=== PATIENT | female | born 1940 | race Caucasian/White ===

== ENCOUNTER 2016-09-28 02:27 | Emergency (ER) | payer OTHER ==
[~2016-09-28] VITALS: Ht 156.2 cm; Wt 77.8 kg
[~2016-09-28 02:27] MED LIST: AMIO200 PO; APIX5TAB PO; CO Q100C9 PO; MAG-500T PO; MELA5TAB8 PO; MISC1CAP PO; NITR0.4S SL; PRED20 PO; TAB-TAB; VITD400 PO; [UNRECOGNIZED DRUG - CODE] PO
[2016-09-28 02:35] VITALS: BP 148/86; PULSE 80; RESP 16; TEMP 97.5; O2SAT 96
[2016-09-28] MEDS ORDERED: APIX5TAB PO (04:09)
[2016-09-28] MEDS ORDERED: VITATAB56 PO (04:09)
[2016-09-28] MEDS ORDERED: COEN100T PO (04:09)
[2016-09-28] MEDS ORDERED: MULT1TAB84 PO (04:09)
[2016-09-28] MEDS ORDERED: AMIO200T PO (04:09)
[2016-09-28] MEDS ORDERED: MAGN500T5 PO (04:09)
[2016-09-28] MEDS ORDERED: TYLETAB34 PO (04:21)
[2016-09-28] MEDS ORDERED: PRED20 PO (04:21)
--- NOTE | 2016-09-28 04:25 | PD ---
HPI Chief Complaint: Pain: Acute or Chronic Time Seen by Provider: 04:19 Travel History International Travel<30 days: No Contact w/Intl Traveler<30days: No Traveled to known affect area: No History of Present Illness HPI 76 old female presents to the emergency department for one day of recurrent gouty arthritis affecting her left great toe which is typically where she has exacerbation. Patient is not a candidate for nonsteroidal anti-inflammatory medications due to history of atrial fibrillation and use of Eliquis. Patient denies any trauma injury. 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 Patient has localized swelling at the site. Some localized redness and swelling no sending erythema denies any claudication or pallor of the left foot or left lower extremity. PFSH Past Medical History Narrative Medical Gouty arthritis atrial fibrillation nursing notes reviewed Hx Anticoagulant Therapy: Yes Atrial Fibrillation: Yes Anxiety: No Depression: No Heart Rhythm Problems: Yes (afib) Cancer: No Cardiac Catheterization: Yes Cardiovascular Problems: Yes High Cholesterol: No Congestive Heart Failure: No Diabetes: No Diminished Hearing: No Endocrine: No Hypertension: Yes Immune Disorder: No Psychiatric: No Immunizations Current: Yes Tetanus Vaccination: > 5 Years Influenza Vaccination: No Menopausal: Yes : 7 Para: 6 Miscarriage: 1 Past Surgical History Abdominal Surgery: Yes (rupture appendix removal at the age of 40's) Appendectomy: Yes Cardiac Surgery: Yes (albation) Coronary Artery Bypass Graft: No Ear Surgery: No Eye Surgery: No Gynecologic Surgery: Yes (ABLATION X2 ) Oral Surgery: No Thoracic Surgery: No Tonsillectomy: Yes Other Surgery: Yes Family History Family Myocardial Infarction: Yes (father, grandfather, uncle ) Social History Alcohol Use: Yes (Occasionally) Tobacco Use: No Substance Use: No Allergies-Medications (Allergen,Severity, Reaction): Coded Allergies: Flexeril (Verified Allergy, Severe, MUSCULOSKELETAL ISSUES, 09/28/16) Percocet (Verified Allergy, Severe, 09/28/16) nervous Lortab (Unverified Adverse Reaction, Severe, JITTERY, 09/28/16) Pseudoephedrine (Unverified Adverse Reaction, Severe, JITTERY, 09/28/16) Reported Meds & Prescriptions Reported Meds & Active Scripts Active Tylenol-Codeine #3 (Acetaminophen-Codeine) 300-30 mg Tab 1 Tab PO Q4H PRN Prednisone 20 Mg Tab 20 Mg PO BID 3 Days Reported Vitamin D-400 (Cholecalciferol) 400 Unit Tab 400 Units PO DAILY Amiodarone (Amiodarone HCl) 200 Mg Tab 200 Mg PO DAILY Coenzyme Q10 (Ubidecarenone) 100 Mg Tab 100 Mg PO DAILY Magnesium Gluconate 500 Mg Tab 500 Mg PO DAILY Eliquis (Apixaban) 5 Mg Tab 5 Mg PO BID Multivitamin Adults (Multiple Vitamins W/ Minerals) 1 Tab 1 Tab PO DAILY Review of Systems General / Constitutional: No: Fever, Chills HENT: No: Congestion Cardiovascular: No: Chest Pain or Discomfort Respiratory: No: Shortness of Breath Gastrointestinal: No: Nausea, Vomiting, Abdominal Pain Genitourinary: No: Dysuria, Flank Pain Musculoskeletal: Positive: Myalgias, Arthralgias (left great toe), Limited ROM (left great toe), Pain Skin: No Rash (left great toe) Neurologic: No: Weakness Psychiatric: No: Anxiety Hematologic/Lymphatic: No: Lymph Node Enlargement Physical Exam Narrative GENERAL: SKIN: Warm and dry. HEAD: Normocephalic. EYES: No scleral icterus. No injection or drainage. NECK: Supple, trachea midline. No JVD or lymphadenopathy. CARDIOVASCULAR: Regular rate and rhythm without murmurs, gallops, or rubs. RESPIRATORY: Breath sounds equal bilaterally. No accessory muscle use. GASTROINTESTINAL: Abdomen soft, non-tender, nondistended. MUSCULOSKELETAL: No cyanosis, or edema. Attention left great toe tender to palpation at the first MTP with mild edema and erythema no increased warmth capillary refill brisk and less than 2 seconds sensory exam intact dorsalis pedis pulse 2+ to palpation left lower extremity is otherwise normal by exam. BACK: Nontender without obvious deformity. No CVA tenderness. Data Data Last Documented VS Vital Signs Date Time Temp Pulse Resp B/P Pulse Ox O2 Delivery O2 Flow Rate FiO2 09/28/16 04:31 78 18 150/72 97 09/28/16 02:35 97.5 Room Air Orders Prednisone (Deltasone) (09/28/16 04:30) MDM Medical Decision Making Medical Screen Exam Complete: Yes Emergency Medical Condition: Yes Medical Record Reviewed: Yes Differential Diagnosis Gouty arthritis, tendinitis, septic arthritis, fracture Narrative Course Patient reports that she is presenting with her typical gouty arthritis does not request any imaging or lab studies states that she typically receives a prescription for prednisone and Tylenol No. 3 with good effect. Patient is on Eliquis therefore cannot take nonsteroidal anti-inflammatory medications. Patient given first dose of prednisone. Diagnosis Primary Impression: Gouty arthritis of toe Referrals: Primary Care Physician call for appointment Patient Instructions: General Instructions Additional Instructions: Take medications as prescribed Follow-up with your primary care physician call office on Thursday Elevate foot Return to the emergency for any concerns or change in condition Med/Other Pt SpecificInfo: Prescription(s) given Scripts Acetaminophen-Codeine (Tylenol-Codeine #3)300-30 mg Tab1 Tab PO Q4H PRN (PAIN) # 15 TAB Ref 0 Prov:Yolande Garcia MD 09/28/16 Prednisone 20 Mg Tab20 Mg PO BID 3 Days Ref 0 Prov:Yolande Garcia MD 09/28/16 Disposition: 01 DISCHARGE HOME Condition: Stable Yolande Garcia MD Sep 28, 2016 04:25
[2016-09-28] MEDS ORDERED: predniSONE 50 MG TAB PO ONE (04:30)
[2016-09-28 04:31] VITALS: BP 150/72
== END 2016-09-28 04:35 | disposition home or self-care (01) ==
LOC: PHED 02:27
DX: M10.9 Gout, unspecified (principal); I48.91 Unspecified atrial fibrillation; I10 Essential (primary) hypertension; Z79.01 Long term (current) use of anticoagulants
CPT/HCPCS: 99283; J7512

== ENCOUNTER 2016-09-29 10:14 | Inpatient (IN) | payer OTHER, MEDICARE ==
[~2016-09-29] VITALS: Ht 157.5 cm; Wt 79.0 kg
[2016-09-29] VITALS (14 sets, daily range): BP systolic 127–187; BP diastolic 72–98; PULSE 62–79; RESP 5–26; TEMP 97.2–98.2; O2SAT 87–98
[~2016-09-29 10:14] MED LIST changes: -AMIO200 PO; +AMIO200T PO; -CO Q100C9 PO; +COEN100T PO; -MAG-500T PO; +MAGN500T5 PO; -MELA5TAB8 PO; -MISC1CAP PO; +MULT1TAB84 PO; -NITR0.4S SL; -TAB-TAB; +TYLETAB34 PO; +VITATAB56 PO; -VITD400 PO; -[UNRECOGNIZED DRUG - CODE] PO
[2016-09-29] MEDS ORDERED: NITROGLYCERIN-DEXTROSE INJ 250 ML IV SCH (10:30)
[2016-09-29] MEDS ORDERED: SODIUM CHLORIDE 0.9% FLUSH 5 ML FLUSH IVF PRN (10:30)
--- NOTE | 2016-09-29 10:53 | RADRPT ---
EXAM DATE/TIME: 09/29/2016 10:43 [facility] COMPARISON: CHEST SINGLE AP, February 22, 2016, 16:25. INDICATIONS : Short of breath. MEDICAL HISTORY : A-fib. SURGICAL HISTORY : None. ENCOUNTER: Initial ACUITY: 1 day PAIN SCORE: 0/10 LOCATION: Bilateral chest FINDINGS: There is cardiomegaly and patchy right basilar airspace disease. No effusions. Degenerative changes o f the spine. Metallic anchors overlie the right humeral head. CONCLUSION: Right basilar airspace disease. Saman Orozco MD on September 29, 2016 at 10:52 Board Certified Radiologist. This report was verified electronically.
[2016-09-29 11:09] LABS: AUTOMATED NEUTROPHIL # 11.2 TH/MM3 (1.8-7.7); BASOPHIL % 0.4 % (0.0-2.0); HEMATOCRIT 38.9 % (35.0-46.0); HEMO FLAGS DIFF FINAL; MEAN CELL VOLUME 87.9 FL (80.0-100.0); MEAN CORPUSCULAR HEMOGLOBIN 29.3 PG (27.0-34.0); MEAN CORPUSCULAR HGB CONC 33.3 % (32.0-36.0); MONO % 4.1 % (0.0-8.0); NEUT % 87.5 % (16.0-70.0); PLATELET COUNT 230 TH/MM3 (150-450); RED BLOOD COUNT 4.43 MIL/MM3 (4.00-5.30); RED CELL DISTRIBUTION WIDTH 14.7 % (11.6-17.2); WHITE BLOOD COUNT 12.7 TH/MM3 (4.0-11.0)
[2016-09-29 11:19] LABS: BACTERIA, URINE RARE /hpf; BLOOD, URINE SMALL (NEG); COMMENT (UR) CULT NOT INDICATED; CULTURE IF INDICATED CULT NOT INDICATED; GLUCOSE,URINE NEG (NEG); KETONE, URINE NEG (NEG); MUCUS URINE FEW /lpf (OCC); NITRITE,URINE NEG (NEG); PH, URINE 5.5 (5.0-8.5); SQUAMOUS EPITHELIAL CELL URINE <1 /hpf (0-5); URINE COLOR YELLOW (YELLW/STRAW)
[2016-09-29 11:24] LABS: ALT (GPT) 77 U/L (10-53); ANION GAP 9 MEQ/L (5-15); AST (GOT) 58 U/L (15-37); BICARBONATE 27.3 MEQ/L (21.0-32.0); BLOOD UREA NITROGEN 22 MG/DL (7-18); CHLORIDE 105 MEQ/L (98-107); GLOMERULAR FILTRATION RATE 49 ML/MIN (>89); SODIUM (NA) 141 MEQ/L (136-145)
[2016-09-29 11:28] LABS: ALKALINE PHOSPHATASE 66 U/L (45-117); TOTAL BILIRUBIN ADULT 0.4 MG/DL (0.2-1.0)
--- NOTE | 2016-09-29 11:29 | PD ---
HPI Chief Complaint: Respiratory Symptoms Time Seen by Provider: 10:22 Travel History International Travel<30 days: No Contact w/Intl Traveler<30days: No Traveled to known affect area: No History of Present Illness HPI This is a 76-year-old woman presents to the emergency department complaining of some leg swelling for the past couple of days. This morning she started getting severe shortness of breath started fairly abruptly. She called EMS and they found her with a 87% on room air with Rales throughout her posterior lung gunter, and she was started on nitroglycerin as well as BiPAP. She has a history of atrial fibrillation, and currently is on amiodarone and Eliquis. She does have a history of CHF with an EF of about 40%. She doesn't really had trouble like this a regular basis. She was recently treated for gout, and was taking prednisone starting a couple days ago. History Past Medical History Narrative Medical A. fib CHF Menopausal: Yes : 7 Para: 6 Social History Alcohol Use: Yes (Occasionally) Tobacco Use: No Allergies-Medications (Allergen,Severity, Reaction): Coded Allergies: Flexeril (Verified Allergy, Severe, MUSCULOSKELETAL ISSUES, 09/29/16) Percocet (Verified Allergy, Severe, 09/29/16) nervous Lortab (Unverified Adverse Reaction, Severe, JITTERY, 09/29/16) Pseudoephedrine (Unverified Adverse Reaction, Severe, JITTERY, 09/29/16) Reported Meds & Prescriptions Reported Meds & Active Scripts Active Prednisone 20 Mg Tab 20 Mg PO BID 3 Days Reported Vitamin D-400 (Cholecalciferol) 400 Unit Tab 400 Units PO DAILY Amiodarone (Amiodarone HCl) 200 Mg Tab 200 Mg PO DAILY Coenzyme Q10 (Ubidecarenone) 100 Mg Tab 100 Mg PO DAILY Eliquis (Apixaban) 5 Mg Tab 5 Mg PO BID Multivitamin Adults (Multiple Vitamins W/ Minerals) 1 Tab 1 Tab PO DAILY Review of Systems Except as stated in HPI: all other systems reviewed are Neg Physical Exam Narrative GENERAL: Well-appearing 76-year-old woman, no acute distress. SKIN: Warm and dry. HEAD: Atraumatic. Normocephalic. CARDIOVASCULAR: Regular rate and rhythm. No murmur appreciated. RESPIRATORY: Mild respiratory distress. Minimal Rales of the posterior lung gunter. No wheezing or rhonchi. GASTROINTESTINAL: Abdomen soft, non-tender, nondistended. Hepatic and splenic margins not palpable. MUSCULOSKELETAL: No obvious deformities. No edema. NEUROLOGICAL: Awake and alert. No obvious cranial nerve deficits. Motor grossly within normal limits. Normal speech. PSYCHIATRIC: Appropriate mood and affect; insight and judgment normal. Data Data Last Documented VS Vital Signs Date Time Temp Pulse Resp B/P Pulse Ox O2 Delivery O2 Flow Rate FiO2 09/29/16 13:16 17 09/29/16 12:45 69 146/81 09/29/16 12:18 96 Nasal Cannula 3 09/29/16 10:17 98.2 Orders Complete Blood Count With Diff (09/29/16 10:22) Comprehensive Metabolic Panel (09/29/16 10:22) B-Type Natriuretic Peptide (09/29/16 10:22) D-Dimer (09/29/16 10:22) Act Partial Throm Time (Ptt) (09/29/16 10:22) Prothrombin Time / Inr (Pt) (09/29/16 10:22) Magnesium (Mg) (09/29/16 10:22) Troponin I (09/29/16 10:22) Urinalysis - C+S If Indicated (09/29/16 10:22) Influenzae A/B Antigen (09/29/16 10:22) Iv Access Insert/Monitor (09/29/16 10:22) Electrocardiogram (09/29/16 10:22) Ecg Monitoring (09/29/16 10:22) Oximetry (09/29/16 10:22) Oxygen Administration (09/29/16 10:22) Chest, Single Ap (09/29/16 10:22) Sodium Chloride 0.9% Flush (Ns Flush) (09/29/16 10:30) Nitroglycerin-Dextrose Inj (Nitroglyceri (09/29/16 10:30) Acetaminophen (Tylenol) (09/29/16 12:30) Ct Pulmonary Angiogram (09/29/16 ) Iohexol 350 Inj (Omnipaque 350 Inj) (09/29/16 13:14) Labs Laboratory Tests Test 09/29/16 09/29/16 10:26 10:47 White Blood Count 12.7 TH/MM3 Red Blood Count 4.43 MIL/MM3 Hemoglobin 13.0 GM/DL Hematocrit 38.9 % Mean Corpuscular Volume 87.9 FL Mean Corpuscular Hemoglobin 29.3 PG Mean Corpuscular Hemoglobin 33.3 % Concent Red Cell Distribution Width 14.7 % Platelet Count 230 TH/MM3 Mean Platelet Volume 9.2 FL Neutrophils (%) (Auto) 87.5 % Lymphocytes (%) (Auto) 8.0 % Monocytes (%) (Auto) 4.1 % Eosinophils (%) (Auto) 0.0 % Basophils (%) (Auto) 0.4 % Neutrophils # (Auto) 11.2 TH/MM3 Lymphocytes # (Auto) 1.0 TH/MM3 Monocytes # (Auto) 0.5 TH/MM3 Eosinophils # (Auto) 0.0 TH/MM3 Basophils # (Auto) 0.0 TH/MM3 CBC Comment DIFF FINAL Differential Comment Prothrombin Time 11.0 SEC Prothromb Time International 1.0 RATIO Ratio Activated Partial 27.5 SEC Thromboplast Time D-Dimer Quantitative (PE/DVT) 1.76 MG/L FEU Sodium Level 141 MEQ/L Potassium Level 4.0 MEQ/L Chloride Level 105 MEQ/L Carbon Dioxide Level 27.3 MEQ/L Anion Gap 9 MEQ/L Blood Urea Nitrogen 22 MG/DL Creatinine 1.08 MG/DL Estimat Glomerular Filtration 49 ML/MIN Rate Random Glucose 146 MG/DL Calcium Level 8.7 MG/DL Magnesium Level 2.0 MG/DL Total Bilirubin 0.4 MG/DL Aspartate Amino Transf 58 U/L (AST/SGOT) Alanine Aminotransferase 77 U/L (ALT/SGPT) Alkaline Phosphatase 66 U/L Troponin I LESS THAN 0.02 NG/ML B-Type Natriuretic Peptide 204 PG/ML Total Protein 7.3 GM/DL Albumin 3.6 GM/DL Urine Color YELLOW Urine Turbidity CLEAR Urine pH 5.5 Urine Specific [place] 1.005 Urine Protein NEG mg/dL Urine Glucose (UA) NEG mg/dL Urine Ketones NEG mg/dL Urine Occult Blood SMALL Urine Nitrite NEG Urine Bilirubin NEG Urine Urobilinogen LESS THAN 2.0 MG/DL Urine Leukocyte Esterase SMALL Urine RBC 1 /hpf Urine WBC 1 /hpf Urine Squamous Epithelial <1 /hpf Cells Urine Bacteria RARE /hpf Urine Mucus FEW /lpf Microscopic Urinalysis Comment CULT NOT INDICATED MDM Medical Decision Making Medical Screen Exam Complete: Yes Emergency Medical Condition: Yes Interpretation(s) Review of EKG: Normal sinus rhythm at a rate of 72, left bundle branch block, otherwise unremarkable. Compared to previous EKG from February 22, 2016, no significant change. LABS: CBC remarkable for mild leukocytosis. CMP remarkable for mildly elevated BUN and creatinine Troponin negative BNP 204 Coags unremarkable D-dimer 1.76 Chest x-ray: Read as Right basilar airspace disease. On my read there Maybe a rounded density in the right midlung as well. CT pulmonary embolism: Bilateral pleural effusions and basilar atelectasis. No evidence for pulmonary embolism. Differential Diagnosis CHF, pulmonary edema, pneumonia, infection, other Narrative Course Medical decision-making INITIAL: This 76-year-old woman presents to the emergency department with Lasix for couple days and then an episode of shortness of breath with Rales, improved with BiPAP and nitroglycerin, suggestive of CHF. She was given Lasix in route as well. We'll check labs, x-ray, EKG, reassess. FINAL: Patient with shortness of breath and hypoxia, likely from CHF exacerbation. No evidence of PE. We will plan on admission for further evaluation. Diagnosis Primary Impression: CHF exacerbation Qualified Code: I50.9 - Acute on chronic congestive heart failure, unspecified congestive heart failure type Hakeem Valdez MD Sep 29, 2016 11:29
[2016-09-29 11:35] LABS: APTT (PATIENT) 27.5 SEC (24.3-30.1)
[2016-09-29] MEDS ORDERED: ACETAMINOPHEN 325 MG TAB PO ONE (12:30)
[2016-09-29] MEDS ORDERED: IOHEXOL 350 MG/ML 10 ML VIAL (for RAD DIAG) IV ONE (13:14)
--- NOTE | 2016-09-29 13:22 | RADRPT ---
EXAM DATE/TIME: 09/29/2016 13:03 [facility] COMPARISON: CHEST SINGLE AP, September 29, 2016, 10:43. INDICATIONS : Shortness of breath. IV CONTRAST: 75 cc Omnipaque 350 (iohexol) IV RADIATION DOSE: 23.19 CTDIvol (mGy) MEDICAL HISTORY : Stroke. Cardiovascular disease Hypertension. SURGICAL HISTORY : None. ENCOUNTER: Initial ACUITY: 1 day PAIN SCALE: 0/10 LOCATION: Bilateral chest TECHNIQUE: Volumetric scanning of the chest was performed using a pulmonary embolism protocol MIP images were re constructed. Using automated exposure control and adjustment of the mA and/or kV according to patien t size, radiation dose was kept as low as reasonably achievable to obtain optimal diagnostic quality images. FINDINGS: PULMONARY ARTERIES: There are moderate bilateral effusions and basilar atelectasis. LUNGS: There is no consolidation or pneumothorax . No concerning pulmonary nodule is visualized. PLEURAE: There is no pleural thickening or pleural effusion. MEDIASTINUM: There is good visualization of the great vessels of the middle mediastinum. No evidence of mediastin al or hilar adenopathy/mass. MUSCULOSKELETAL: Within normal limits for patient age. MISCELLANEOUS: The visualized upper abdominal organs demonstrate no acute abnormality. There is a small cyst in the lateral segment left lobe liver measuring 1 cm. CONCLUSION: 1. Bilateral pleural effusions and basilar atelectasis. 2. No evidence for pulmonary embolism. Saman Orozco MD on September 29, 2016 at 13:19 Board Certified Radiologist. This report was verified electronically.
[2016-09-29] MEDS ORDERED: HEPARIN SODIUM - SQ 10,000 UNITS/ML VIAL SQ SCH (14:30)
[2016-09-29] MEDS ORDERED: SODIUM CHLORIDE 0.9% FLUSH 5 ML FLUSH FLUSH PRN (14:30)
[2016-09-29] MEDS ORDERED: POTASSIUM CHLORIDE 20 MEQ CONTROLLED RELEASE TAB PO ONE (14:30)
[2016-09-29] MEDS ORDERED: NALOXONE HCL 0.4 MG/ML AMP IV PRN (14:30)
[2016-09-29] MEDS ORDERED: BISACODYL 10 MG SUPP PR PRN (15:00)
[2016-09-29] MEDS ORDERED: MAGNESIUM HYDROXIDE SUSP 30 ML CUP PO PRN (15:00)
[2016-09-29] MEDS ORDERED: SENNOSIDES 8.6 MG TAB PO PRN (15:00)
--- NOTE | 2016-09-29 16:30 | HHI.HP ---
[facility] Bienvenido Richter MD Admission Diagnosis hypoxia, CHF exacerbation Diagnoses: Chief Complaint: Shortness of breath Travel History International Travel<30 Days: No Contact w/Intl Traveler <30 Da: No Traveled to Known Affected Are: No History of Present Illness 76-year-old female with a past medical history of A. fib s/p ablation and cardioversion and gout who presents with shortness of breath. The patient states that she woke up this morning about an hour after she was, she began having worsening shortness of breath. She does report that she's noticed suddenly worsening lower extremity swelling over the past week or so. She states she normally gets swollen legs over the course of the day, but normally they're resolved overnight, and her legs are smaller in the morning. She reports that her legs were more swollen than normal today. 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 She reports the pain in her left foot has significantly improved on the prednisone. She does not feel that she's increased her fluid intake while on steroids, normally drinks about half a gallon of water daily. She does state that over the holidays she's been having a glass of wine most nights. She denies any orthopnea, chest pain, palpitations , nausea, vomiting, fever, chills, cough, dysuria, diarrhea, constipation. Review of Systems Other 10 point review of systems performed and was negative except as stated in the history of present illness Past Family Social History Past Medical History Atrial fibrillation status post ablation and cardioversion Gouty arthritis Past Surgical History Cardiac catheterization, mild CAD with no intervention EPS study with ablation 6 denies cardioversion Appendectomy Uterine scraping Tonsillectomy Rotator cuff repair Reported Medications Prednisone 20 Mg Tab 20 Mg PO BID 3 Days Vitamin D-400 (Cholecalciferol) 400 Unit Tab 400 Units PO DAILY Amiodarone (Amiodarone HCl) 200 Mg Tab 200 Mg PO DAILY Coenzyme Q10 (Ubidecarenone) 100 Mg Tab 100 Mg PO DAILY Eliquis (Apixaban) 5 Mg Tab 5 Mg PO BID Multivitamin Adults (Multiple Vitamins W/ Minerals) 1 Tab 1 Tab PO DAILY Add zzQuil for sleep Allergies: Coded Allergies: Flexeril (Verified Allergy, Severe, MUSCULOSKELETAL ISSUES, 09/29/16) Percocet (Verified Allergy, Severe, 09/29/16) nervous Lortab (Unverified Adverse Reaction, Severe, JITTERY, 09/29/16) Pseudoephedrine (Unverified Adverse Reaction, Severe, JITTERY, 09/29/16) Active Ordered Medications Current Medications Medications (Trade) Dose Ordered Sig/Ladonna Route Start Time Stop Time Status Last Admin IV Flush 2 ml 2 ml UNSCH PRN IVF 09/29/16 10:30 (Nitroglycerin-Dextrose Inj) 250 ml @ 0 mls/hr TITRATE IV 09/29/16 10:30 09/29/16 10:36 (NS Flush) 2 ml UNSCH PRN FLUSH 09/29/16 14:30 (NS Flush) 2 ml BID FLUSH 09/29/16 21:00 (Dulcolax Supp) 10 mg DAILY PRN AK 09/29/16 15:00 (Milk Of Magnesia Liq) 30 ml Q12HR PRN PO 09/29/16 15:00 (Senokot) 17.2 mg Q12HR PRN PO 09/29/16 15:00 (Narcan Inj) 0.4 mg UNSCH PRN IV 09/29/16 14:30 (Cordarone) 200 mg DAILY PO 09/30/16 09:00 (Eliquis) 5 mg BID PO 09/29/16 21:00 (Theragran M Tab) 1 tab DAILY PO 09/30/16 09:00 (Lasix Inj) 20 mg BID@09,18 IV PUSH 09/29/16 18:00 (Norvasc) 5 mg DAILY PO 09/29/16 17:00 Family History Father with AL and CHF Mother with breast cancer Social History Denies any tobacco or drug use Occasional alcohol use Physical Exam Vital Signs Vital Signs Date Time Temp Pulse Resp B/P Pulse Ox O2 Delivery O2 Flow Rate FiO2 09/29/16 15:38 69 18 165/92 95 Nasal Cannula 3 09/29/16 14:27 66 18 165/92 96 Nasal Cannula 3 09/29/16 13:16 17 09/29/16 12:45 69 146/81 09/29/16 12:18 62 18 140/72 96 Nasal Cannula 3 09/29/16 11:18 65 18 141/82 94 Nasal Cannula 09/29/16 11:04 127/79 09/29/16 10:52 67 18 156/85 94 Nasal Cannula 5 09/29/16 10:47 168/95 09/29/16 10:38 70 169/95 09/29/16 10:17 98.2 79 26 187/98 87 Physical Exam GENERAL: Well-developed well-nourished. In no acute distress. SKIN: Warm and dry. Left foot gout as below. HEENT: Normocephalic. Pupils equal and round. Mucous membranes pink and moist. CARDIOVASCULAR: Regular rate and rhythm. No murmur appreciated. RESPIRATORY: No accessory muscle use. Clear to auscultation. Bibasilar crackles. GASTROINTESTINAL: Abdomen soft, non-tender, nondistended. Bowel sounds x4. MUSCULOSKELETAL: Left MTP joint with erythema and no TTP. No clubbing or cyanosis. No edema. NEUROLOGICAL: Awake and alert. No focal neurological deficits. Moves upper and lower extremities spontaneously. Normal speech. PSYCHIATRIC: Appropriate mood and affect; insight and judgment normal. Laboratory Laboratory Tests Test 09/29/16 09/29/16 10:26 10:47 White Blood Count 12.7 Red Blood Count 4.43 Hemoglobin 13.0 Hematocrit 38.9 Mean Corpuscular Volume 87.9 Mean Corpuscular Hemoglobin 29.3 Mean Corpuscular Hemoglobin 33.3 Concent Red Cell Distribution Width 14.7 Platelet Count 230 Mean Platelet Volume 9.2 Neutrophils (%) (Auto) 87.5 Lymphocytes (%) (Auto) 8.0 Monocytes (%) (Auto) 4.1 Eosinophils (%) (Auto) 0.0 Basophils (%) (Auto) 0.4 Neutrophils # (Auto) 11.2 Lymphocytes # (Auto) 1.0 Monocytes # (Auto) 0.5 Eosinophils # (Auto) 0.0 Basophils # (Auto) 0.0 CBC Comment DIFF FINAL Differential Comment Prothrombin Time 11.0 Prothromb Time International 1.0 Ratio Activated Partial 27.5 Thromboplast Time D-Dimer Quantitative (PE/DVT) 1.76 Sodium Level 141 Potassium Level 4.0 Chloride Level 105 Carbon Dioxide Level 27.3 Anion Gap 9 Blood Urea Nitrogen 22 Creatinine 1.08 Estimat Glomerular Filtration 49 Rate Random Glucose 146 Calcium Level 8.7 Magnesium Level 2.0 Total Bilirubin 0.4 Aspartate Amino Transf 58 (AST/SGOT) Alanine Aminotransferase 77 (ALT/SGPT) Alkaline Phosphatase 66 Troponin I LESS THAN 0.02 B-Type Natriuretic Peptide 204 Total Protein 7.3 Albumin 3.6 Urine Color YELLOW Urine Turbidity CLEAR Urine pH 5.5 Urine Specific [place] 1.005 Urine Protein NEG Urine Glucose (UA) NEG Urine Ketones NEG Urine Occult Blood SMALL Urine Nitrite NEG Urine Bilirubin NEG Urine Urobilinogen LESS THAN 2.0 Urine Leukocyte Esterase SMALL Urine RBC 1 Urine WBC 1 Urine Squamous Epithelial <1 Cells Urine Bacteria RARE Urine Mucus FEW Microscopic Urinalysis Comment CULT NOT INDICATED Date/Time Procedure Status Source Growth 09/29/16 10:45 Influenza Types A,B Antigen (GABRIEL) - Final Complete Nasal Washing NEGATIVE FOR FLU A AND B ANTIGEN.... Result Diagram: 09/29/16 1026 09/29/16 1026 Assessment and Plan Problem List: (1) CHF exacerbation ICD Code: I50.9 Status: Acute (2) Gouty arthritis of toe ICD Code: M10.9 Status: Resolved (3) probable CHF Status: Acute Assessment and Plan 76-year-old female with a past medical history of A. fib s/p ablation and cardioversion and gout who presents with shortness of breath Acute respiratory failure: Presented with tachypnea and hypoxia 87%. Possibly secondary to CHF exacerbation as below. Chest x-ray with right basilar airspace disease. Pulmonary angiogram personally reviewed, negative for PE, however with small bilateral pleural effusions. O2 and ipratropium as needed. Acute diastolic CHF exacerbation: Chest CT with bilateral pleural effusions as above. BNP mildly elevated at 200. Previous MOOKIE from 01/11 reviewed, normal systolic function and EF. Repeat echocardiogram. Diuresis with IV Lasix. Fluid restrictions, patient educated. Monitor I's and O's. Consult cardiology. Abnormal EKG: EKG reviewed; QRS duration 183, increased from 160s from previous ; LBBB appears to be chronic. Initial troponin within normal limits. Trend cardiac enzymes and EKGs. Monitor on telemetry. Subacute gout flareup: Of the left MTP joint. Already improved with a few steroid doses, hold steroids for now with fluid retention as above. Start colchicine. Accelerated hypertension: Started on amlodipine by cardiology. Vasotec as needed. History of atrial fibrillation: EKG with regular rhythm at this time. Continue Eliquis and amiodarone. DVT prophylaxis: On Eliquis. Written by Michelet Bernal, acting as scribe for Dr. Stanton on 09/29/16 at 16:28. Code Status Full Discussed Condition With Patient with daughter at bedside Attending Statement The documentation accurately reflects the work performed [id number] by me, Dr. Stanton on 09/29/16 at 16:28. Problem Qualifiers (1) CHF exacerbation: Qualified Code: I50.9 - Acute on chronic congestive heart failure, unspecified congestive heart failure type Michelet Bernal Sep 29, 2016 16:30 Andrés Stanton MD Oct 01, 2016 03:13
[2016-09-29] MEDS ORDERED: RESP: IPRATROPIUM 0.5 MG/2.5 ML NEB NEB PRN (17:00)
[2016-09-29] MEDS ORDERED: ENALAPRILAT 1.25 MG/ML VIAL IV PUSH PRN (17:00)
--- NOTE | 2016-09-29 17:18 | MB ---
cc: ZINA BLUNT MD DATE OF CONSULTATION 09/29/2016 REASON FOR CONSULTATION Congestive heart failure. HISTORY OF PRESENT ILLNESS Ms. Jones is a 76-year-old patient of Dr. Rosales. She has a history of atrial fibrillation and is status post ablation. She reports that she had been doing quite well until she had progressive shortness of breath over the last day or so. She was found to be hypoxic with a sat of 87. She subsequently came to the emergency room. She notes that she did have a plateful of sauerkraut and pork roast last night to celebrate the new year. PAST MEDICAL HISTORY Significant for: 1. Atrial fibrillation status post ablation. 2. Congestive heart failure. 3. Moderate CAD by catheterization. ALLERGIES TO FIORICET, PERCOCET, LORTAB AND PSEUDOEPHEDRINE. FAMILY HISTORY Noncontributory. SOCIAL HISTORY The patient does not drink or smoke. MEDICATIONS Outpatient medications include: 1. Eliquis. 2. Prednisone. 3. Amiodarone. 4. Multivitamin. REVIEW OF SYSTEMS Except for what is mentioned in the history of present illness all 12 are negative. PHYSICAL EXAMINATION VITAL SIGNS: Current vital signs are 66, 18, 165/92. The patient reports when she was brought in by EMS her systolic was over 200. GENERAL: She is a well appearing female who is in no apparent distress. NECK: Free from JVD. LUNGS: Bilaterally clear to auscultation. CARDIOVASCULAR: On examination she has a normal S1-S2. I did not appreciate any murmurs, rubs, or gallops. ABDOMEN: Soft. EXTREMITIES: Are free from edema. IMAGING A chest CT shows bilateral pleural effusions and basilar atelectasis. LABORATORY FINDINGS Significant for a troponin of less than 0.02 and BNP of 204. IMPRESSIONS CHF - the patient does have a history of the same. She has responded quickly to diuretics and BiPap. The patient in fact is requesting discharge home. I suspect this was from the large sodium load from the sauerkraut that she had recently. Nonetheless, she does have a history of CAD. In any case right now the patient is breathing better. I do agree with continuing the Lasix. I would also like to add amlodipine to assist with blood pressure control and vasodilation. Dr. Rosales will return in the a.m. Atrial fibrillation - the patient appears to be in sinus rhythm currently. Lele Feng/KK /3:37 PM /4:59 PM
[2016-09-29] MEDS: amLODIPine BESYLATE 5 MG TAB PO SCH (17:40)
[2016-09-29] MEDS: FUROSEMIDE 20 MG/2 ML VIAL IV PUSH SCH (17:41)
--- NOTE | 2016-09-29 17:41 | EKG ---
Date Performed: 09/29/2016 Time Performed: 10:24:42 PTAGE: 76 years EKG: Normal Sinus rhythm LEFT BUNDLE BRANCH BLOCK When compared to previous tracing, the patient is no longer Tachycardic. AB NORMAL ECG PREVIOUS TRACING : 02/22/2016 22.06 DOCTOR: Miracle Humphreys Interpretating Date/Time 09/29/2016 17:40:03
[2016-09-29] MEDS: SODIUM CHLORIDE 0.9% FLUSH 5 ML FLUSH FLUSH SCH (21:18)
[2016-09-29] MEDS: APIXABAN 5 MG TABLET PO SCH (21:18)
[2016-09-29] MEDS: COLCHICINE 0.6 MG TAB PO SCH (21:18)
[2016-09-30] VITALS (9 sets, daily range): BP systolic 121–168; BP diastolic 55–86; PULSE 63–76; RESP 16–18; TEMP 97.3–97.9; O2SAT 90–96
[2016-09-30 07:50] LABS: AUTOMATED NEUTROPHIL # 5.4 TH/MM3 (1.8-7.7); BASOPHIL # 0.1 TH/MM3 (0-0.2); BASOPHIL % 1.1 % (0.0-2.0); EOSINOPHIL # 0.1 TH/MM3 (0-0.4); EOSINOPHIL % 0.9 % (0.0-4.0); HEMATOCRIT 38.6 % (35.0-46.0); HEMO FLAGS DIFF FINAL; LYMPH % 23.5 % (9.0-44.0); LYMPHOCYTE # 1.9 TH/MM3 (1.0-4.8); MEAN CELL VOLUME 86.7 FL (80.0-100.0); MEAN CORPUSCULAR HEMOGLOBIN 29.3 PG (27.0-34.0); MEAN CORPUSCULAR HGB CONC 33.7 % (32.0-36.0); MONO % 9.3 % (0.0-8.0); NEUT % 65.2 % (16.0-70.0); PLATELET COUNT 222 TH/MM3 (150-450); RED BLOOD COUNT 4.45 MIL/MM3 (4.00-5.30); RED CELL DISTRIBUTION WIDTH 14.5 % (11.6-17.2); WHITE BLOOD COUNT 8.3 TH/MM3 (4.0-11.0)
[2016-09-30 08:19] LABS: ALKALINE PHOSPHATASE 63 U/L (45-117); ALT (GPT) 68 U/L (10-53); ANION GAP 9 MEQ/L (5-15); AST (GOT) 34 U/L (15-37); BICARBONATE 29.6 MEQ/L (21.0-32.0); BLOOD UREA NITROGEN 24 MG/DL (7-18); CHLORIDE 100 MEQ/L (98-107); GLOMERULAR FILTRATION RATE 60 ML/MIN (>89); POTASSIUM 3.5 MEQ/L (3.5-5.1); SODIUM (NA) 139 MEQ/L (136-145); TOTAL BILIRUBIN ADULT 0.8 MG/DL (0.2-1.0)
[2016-09-30] MEDS: COLCHICINE 0.6 MG TAB PO SCH (10:16)
[2016-09-30] MEDS: MULTIVITAMINS/MINERALS THERAPEUTIC TAB PO SCH (10:16)
[2016-09-30] MEDS: FUROSEMIDE 20 MG/2 ML VIAL IV PUSH SCH (10:17)
[2016-09-30] MEDS: AMIODARONE 200 MG TAB PO SCH (10:17)
[2016-09-30] MEDS: amLODIPine BESYLATE 5 MG TAB PO SCH (10:17)
[2016-09-30] MEDS: SODIUM CHLORIDE 0.9% FLUSH 5 ML FLUSH FLUSH SCH ×2 (10:17→20:47)
[2016-09-30] MEDS: APIXABAN 5 MG TABLET PO SCH ×2 (10:17→20:47)
--- NOTE | 2016-09-30 14:41 | HHI.PR ---
Subjective Remarks Follow-up for possible CHF exacerbation. The patient reports that her shortness of breath is improved and at baseline. She is no longer requiring any oxygen. She's been able to ambulate with PT, denies any lightheadedness. She reports that her left lower extremity redness and swelling has improved to baseline. In addition to wine, the patient states she had a lot of pork and sauerkraut before . Echocardiogram was performed today, results pending. Objective Vitals Vital Signs Date Time Temp Pulse Resp B/P Pulse Ox O2 Delivery O2 Flow Rate FiO2 09/30/16 11:56 94 Nasal Cannula 3.00 09/30/16 08:00 97.3 69 16 148/68 94 09/30/16 04:08 97.9 72 18 168/86 93 09/30/16 00:18 97.7 72 18 132/55 90 09/29/16 20:48 65 09/29/16 19:40 97.6 75 20 161/81 98 09/29/16 19:16 95 Nasal Cannula 3.00 09/29/16 15:38 69 18 165/92 95 Nasal Cannula 3 09/29/16 15:00 97.2 67 16 169/84 97 I/O 09/29/16 09/29/16 09/29/16 09/30/16 09/30/16 09/30/16 07:00 15:00 23:00 07:00 15:00 23:00 Intake Total 482 ml 240 ml Output Total 1400 ml 600 ml Balance -1400 ml 482 ml -360 ml Intake Oral 480 ml 240 ml IV Total 2 ml Output Urine Total 1400 ml 600 ml # Voids 1 3 # Bowel Movements 0 0 Result Diagram: 09/30/16 0704 09/30/16 0704 Imaging Last Impressions Chest X-Ray 09/29/16 1022 Signed Impressions: Service Date/Time: Thursday, September 29, 2016 10:43 - CONCLUSION: Right basilar airspace disease. Saman Orozco MD CT Angiography 09/29/16 0000 Signed Impressions: Service Date/Time: Thursday, September 29, 2016 13:03 - CONCLUSION: 1. Bilateral pleural effusions and basilar atelectasis. 2. No evidence for pulmonary embolism. Saman Orozco MD Objective Remarks GENERAL: Well-developed well-nourished. In no acute distress. SKIN: Warm and dry. Left foot gout as below. HEENT: Normocephalic. Pupils equal and round. Mucous membranes pink and moist. CARDIOVASCULAR: Regular rate and rhythm. No murmur appreciated. RESPIRATORY: No accessory muscle use. Clear to auscultation. GASTROINTESTINAL: Abdomen soft, non-tender, nondistended. Bowel sounds x4. MUSCULOSKELETAL: Left MTP joint with no further erythema or swelling. No clubbing or cyanosis. No edema. NEUROLOGICAL: Awake and alert. No focal neurological deficits. Moves upper and lower extremities spontaneously. Normal speech. PSYCHIATRIC: Appropriate mood and affect; insight and judgment normal. A/P Problem List: (1) CHF exacerbation ICD Code: I50.9 Status: Acute (2) Gouty arthritis of toe ICD Code: M10.9 Status: Resolved (3) probable CHF Status: Acute Assessment and Plan 76-year-old female with a past medical history of A. fib s/p ablation and cardioversion and gout who presents with shortness of breath Acute respiratory failure: Presented with tachypnea and hypoxia 87%. Currently comfortable on room air. Possibly secondary to CHF exacerbation as below. Chest x-ray with right basilar airspace disease. Pulmonary angiogram personally reviewed, negative for PE, however with small bilateral pleural effusions. Currently comfortable on room air. O2 and ipratropium as needed. Acute diastolic CHF exacerbation: Chest CT with bilateral pleural effusions as above. BNP mildly elevated at 200. Previous MOOKIE from 01/11 reviewed, normal systolic function and EF. Repeat echocardiogram pending. S/P diuresis with IV Lasix, continue orally. Fluid restrictions, patient educated. Monitor I's and O's. Consulted cardiology, appreciate input. Abnormal EKG: EKG reviewed; QRS duration 183, increased from 160s from previous ; LBBB appears to be chronic. Troponin 3 within normal limits. Monitor on telemetry. Subacute gout flareup: Of the left MTP joint. Already improved with a few steroid doses, hold steroids for now with fluid retention as above. Swelling and erythema resolved after starting on colchicine. Hypertension: Started on amlodipine by cardiology. BP somewhat improved overnight. Consider increasing amlodipine dose if BP remains suboptimal. Vasotec as needed. History of atrial fibrillation: EKG with regular rhythm at this time. Continue Eliquis and amiodarone. DVT prophylaxis: On Eliquis. Written by Michelet Bernal, acting as scribe for Dr. Stanton on 09/30/16 at 14:40. Discharge Planning Possible discharge pending results of echocardiogram. Attending Statement The documentation accurately reflects the work performed [id number] by me, Dr. Stanton on 09/30/16 at 14:40. Problem Qualifiers (1) CHF exacerbation: Qualified Code: I50.9 - Acute on chronic congestive heart failure, unspecified congestive heart failure type Michelet Bernal Sep 30, 2016 14:41 Andrés Stanton MD Oct 01, 2016 02:34
[2016-09-30] MEDS ORDERED: POTASSIUM CHLORIDE 20 MEQ CONTROLLED RELEASE TAB PO ONE (15:00)
--- NOTE | 2016-09-30 17:38 | EC ---
Study Study Date:09/30/2016 STUDY CONCLUSIONS SUMMARY - Procedure narrative: Transthoracic echocardiography. Image quality was fair. The study was technically limited due to poor acoustic window availability. Scanning was performed from the parasternal, apical, and subcostal acoustic windows. - Left ventricle: Systolic function was probably normal. Limited views the ejection fraction is probably 55-60%, but unable to supreme court judge all wall motion due to technically difficult study. - Aortic valve: Trace regurgitation. - Mitral valve: Mild regurgitation. - Pulmonic valve: Peak gradient: 10mm Hg (S). If LV function is below 40, please consider prescribing an ACEI or ARB or document rationale for non-use. PROCEDURE DATA STUDY STATUS: Elective. Procedure: Transthoracic echocardiography. Image quality was fair. The study was technically limited due to poor acoustic window availability. Scanning was performed from the parasternal, apical, and subcostal acoustic windows. Study completion: The patient tolerated the procedure well. Transthoracic echocardiography. M-mode, complete 2D, complete spectral Doppler, and color Doppler. Height: Height: 62in. Weight: Weight: 175.6lb. Body mass index: BMI: 32.2kg/m^2. Body surface area: BSA: 1.81m^2. Patient status: Inpatient. CARDIAC ANATOMY LEFT VENTRICLE: Systolic function was probably normal. Limited views the ejection fraction is probably 55-60%, but unable to supreme court judge all wall motion due to technically difficult study. AORTIC VALVE: Doppler: There was no stenosis. Trace regurgitation. Valve area: 2.53cm^2 (Vmax). Indexed valve area: 1.4cm^2/m^2 (Vmax). Peak gradient: 30mm Hg (S). MITRAL VALVE: The valve appears to be grossly normal. Doppler: There was no evidence for stenosis. Mild regurgitation. Mean gradient: 2mm Hg (D). Peak gradient: 3mm Hg (D). PULMONIC VALVE: Not well visualized. Doppler: There was no evidence for stenosis. Trace regurgitation. Peak gradient: 10mm Hg (S). TRICUSPID VALVE: The valve appears to be grossly normal. Doppler: There was no evidence for stenosis. Trace regurgitation. Patient weight: 175.6lb _Ejection fraction:_ 65-75% _Fractional shortening:_ 32% up to 5Kg 5-11.5Kg 11.6-22.9Kg 23-45Kg 45-57Kg Aortic Root 7-13 <17 13-22 17-27 17-27 LA diam 6-13 <23 24-38 33-47 37-40 RVID 10-17 7-15 7-15 7-18 8-17 LVIDd 12-22 <32 24-38 33-47 37-40 LVPW 2-4 3-6 5-7 6-8 7-8 IVS 2-4 3-6 5-7 6-8 7-8 BASIC MEASUREMENTS ADULT NORMAL Left ventricle LV internal dimension, ED, chordal 44.3 mm 43-52 level, PLAX LV internal dimension, ES, chordal 32.6 mm 23-38 level, PLAX Fractional shortening, chordal level, *26 % >29 PLAX LV posterior wall thickness, ED 9.2 mm IVS/LVPW ratio, ED 1.05 <1.3 Ventricular septum Septal thickness, ED 9.7 mm Aortic valve Leaflet separation 16 mm 15-26 Aorta Ascending aorta anterior-posterior 34 mm diameter, S BASIC MEASUREMENTS ADULT NORMAL Aortic valve Leaflet separation 16 mm 15-26 Aorta Root diameter, ED 23 mm 20-37 Left atrium Anterior-posterior dimension, ES 33 mm 19-40 Anterior-posterior dimension index, ES 1.82 cm/m^2 <2.2 LA/aortic root ratio 1.43 DOPPLER MEASUREMENTS ADULT NORMAL Main pulmonary artery Pressure, S 20 mm Hg =30 Aortic valve Peak velocity, S 274 cm/s VTI, S 25.6 cm Peak gradient, S 30 mm Hg Valve area, Vmax 2.53 cm^2 Valve area index, Vmax 1.4 cm^2/m^2 Regurgitant velocity, ED 344 cm/s Regurgitant deceleration 1190 cm/s^2 Regurgitant pressure half-time 845 ms Regurgitant gradient, ED 47 mm Hg Mitral valve Peak E-wave velocity 105 cm/s Peak A-wave velocity 73.1 cm/s Mean velocity, D 60.5 cm/s Deceleration time 215 ms 150-230 Mean gradient, D 2 mm Hg Peak gradient, D 3 mm Hg Peak E/A ratio 1.4 Maximal regurgitant velocity 563 cm/s Tricuspid valve Regurgitant peak velocity 222 cm/s Peak RV-RA gradient, S 20 mm Hg Maximal regurgitant velocity 222 cm/s Systemic veins Estimated CVP 10 mm Hg Right ventricle RV pressure, S *30 mm Hg <30 Pulmonic valve Peak velocity, S 162 cm/s Peak gradient, S 10 mm Hg LEGEND: Mean values are shown as u=mean value. Asterisk (*) jackson values outside specified normal range. Prepared and signed by Masood Hernandes [id number]
--- NOTE | 2016-09-30 17:39 | HHI.PR ---
Subjective Remarks Feeling better. Want to go home Objective Vital Signs Date Time Temp Pulse Resp B/P Pulse Ox O2 Delivery O2 Flow Rate FiO2 09/30/16 12:00 97.8 76 16 131/62 94 09/30/16 11:56 94 Nasal Cannula 3.00 09/30/16 08:00 97.3 69 16 148/68 94 09/30/16 08:00 68 09/30/16 08:00 68 09/30/16 04:08 97.9 72 18 168/86 93 09/30/16 00:18 97.7 72 18 132/55 90 09/29/16 20:48 65 09/29/16 19:40 97.6 75 20 161/81 98 09/29/16 19:16 95 Nasal Cannula 3.00 I/O 09/29/16 09/29/16 09/29/16 09/30/16 09/30/16 09/30/16 07:00 15:00 23:00 07:00 15:00 23:00 Intake Total 482 ml 240 ml Output Total 1400 ml 600 ml Balance -1400 ml 482 ml -360 ml Intake Oral 480 ml 240 ml IV Total 2 ml Output Urine Total 1400 ml 600 ml # Voids 1 3 # Bowel Movements 0 0 Result Diagram: 09/30/16 0704 09/30/16 0704 Imaging Alert, fully oriented Lungs: ventilated Heart: S1, S2 regular, no gallop Abdomen: soft, no mass Ext: no edema Current Medications Medications (Trade) Dose Ordered Sig/Ladonna Route Start Time Stop Time Status Last Admin (NS Flush) 2 ml UNSCH PRN IVF 09/29/16 10:30 (NS Flush) 2 ml UNSCH PRN FLUSH 09/29/16 14:30 (NS Flush) 2 ml BID FLUSH 09/29/16 21:00 09/30/16 10:17 (Dulcolax Supp) 10 mg DAILY PRN GA 09/29/16 15:00 (Milk Of Magnesia Liq) 30 ml Q12HR PRN PO 09/29/16 15:00 (Senokot) 17.2 mg Q12HR PRN PO 09/29/16 15:00 (Narcan Inj) 0.4 mg UNSCH PRN IV 09/29/16 14:30 (Cordarone) 200 mg DAILY PO 09/30/16 09:00 09/30/16 10:17 (Eliquis) 5 mg BID PO 09/29/16 21:00 09/30/16 10:17 (Theragran M Tab) 1 tab DAILY PO 09/30/16 09:00 09/30/16 10:16 (Norvasc) 5 mg DAILY PO 09/29/16 17:00 09/30/16 10:17 (Vasotec Inj) 1.25 mg Q6H PRN IV PUSH 09/29/16 17:00 (Colchicine) 0.6 mg DAILY PO 09/29/16 17:00 09/30/16 10:16 (Lasix) 20 mg BID@,18 PO 09/30/16 18:00 Assessment and Plan Problem List: (1) CHF exacerbation Status: Acute Plan: Doing better. Edema resolved Last Echo in December 2015 EF 55-60%. No SOB can be DH if echo ok Follow up as OP. (2) Atrial fibrillation Status: Acute Plan: No afib since last ablation, in January 2016, reported Problem Qualifiers (1) CHF exacerbation: Qualified Code: I50.9 - Acute on chronic congestive heart failure, unspecified congestive heart failure type Juarez Rosales MD Sep 30, 2016 17:39
[2016-09-30] MEDS ORDERED: FUROSEMIDE 20 MG TAB PO SCH (18:00)
--- NOTE | 2016-09-30 23:48 | EKG ---
Date Performed: 09/29/2016 Time Performed: 21:55:55 PTAGE: 76 years EKG: Sinus rhythm WITH FIRST DEGREE AV BLOCK MARKED LEFT AXIS DEVIATION POSSIBLE RIGHT VENTRICULAR CONDUCTION DELAY LE FT BUNDLE BRANCH BLOCK ABNORMAL ECG PREVIOUS TRACING : 09/29/2016 16.51 DOCTOR: Juarez Rosales Interpretating Date/Time 09/30/2016 23:42:44
--- NOTE | 2016-09-30 23:56 | EKG ---
Date Performed: 09/29/2016 Time Performed: 16:51:40 PTAGE: 76 years EKG: Sinus rhythm MARKED LEFT AXIS DEVIATION LEFT BUNDLE BRANCH BLOCK ABNORMAL ECG PREVIOUS TRACING : 09/29/2016 14.33 DOCTOR: Juarez Rosales Interpretating Date/Time 09/30/2016 23:48:32
--- NOTE | 2016-09-30 23:59 | EKG ---
Date Performed: 09/29/2016 Time Performed: 14:33:45 PTAGE: 76 years EKG: Sinus rhythm WITH FIRST DEGREE AV BLOCK MARKED LEFT AXIS DEVIATION LEFT BUNDLE BRANCH BLOCK ABNORMAL ECG PREVIOUS TRACING : 09/29/2016 10.24 DOCTOR: Juarez Rosales Interpretating Date/Time 09/30/2016 23:50:45
[2016-10-01 00:25] VITALS: BP 125/63; PULSE 75; RESP 20; TEMP 97.7; O2SAT 95
[2016-10-01] MEDS ORDERED: HYDR12.56 PO (03:31)
[2016-10-01] MEDS ORDERED: AMLO5 PO (03:31)
[2016-10-01] MEDS ORDERED: COLC1TAB15 PO (03:37)
[2016-10-01] MEDS ORDERED: ALLO100T PO (03:37)
[2016-10-01 04:00] VITALS: BP 132/73; PULSE 75; RESP 16; TEMP 98.6; O2SAT 97
[2016-10-01 08:00] VITALS: BP 117/58; PULSE 81; RESP 16; TEMP 97.8; O2SAT 94
[2016-10-01 09:00] VITALS: O2SAT 99
[2016-10-01] MEDS ORDERED: POTASSIUM CHLORIDE 10 MEQ CONTROLLED RELEASE TAB PO ONE (09:00)
[2016-10-01] MEDS: APIXABAN 5 MG TABLET PO SCH (09:28)
[2016-10-01] MEDS: amLODIPine BESYLATE 5 MG TAB PO SCH (09:28)
[2016-10-01] MEDS: AMIODARONE 200 MG TAB PO SCH (09:28)
[2016-10-01] MEDS: MULTIVITAMINS/MINERALS THERAPEUTIC TAB PO SCH (09:28)
[2016-10-01] MEDS: SODIUM CHLORIDE 0.9% FLUSH 5 ML FLUSH FLUSH SCH (09:28)
[2016-10-01] MEDS: COLCHICINE 0.6 MG TAB PO SCH (09:28)
--- NOTE | 2016-10-02 00:45 | HHI.PR ---
Subjective Remarks date of service 10/01/16. patient seen around 10am. denies any chest pain or shortness of breath. wants to go home. Objective Vital Signs Date Time Temp Pulse Resp B/P Pulse Ox O2 Delivery O2 Flow Rate FiO2 10/01/16 09:00 99 21 10/01/16 09:00 99 21 10/01/16 08:00 97.8 81 16 117/58 94 10/01/16 04:00 98.6 75 16 132/73 97 I/O 10/01/16 10/01/16 10/01/16 10/02/16 10/02/16 10/02/16 07:00 15:00 23:00 07:00 15:00 23:00 Intake Total 400 ml Balance 400 ml Intake Oral 400 ml # Voids 3 # Bowel Movements 0 Result Diagram: 09/30/16 0704 09/30/16 0704 Objective Remarks GENERAL: lying in bed. appears comfortable. aaox3 SKIN: Warm and dry. HEAD: Normocephalic. EYES: No scleral icterus. No injection or drainage. NECK: Supple, trachea midline. No JVD or lymphadenopathy. CARDIOVASCULAR: Regular rate and rhythm without murmurs, gallops, or rubs. RESPIRATORY: Breath sounds equal bilaterally. No accessory muscle use. GASTROINTESTINAL: Abdomen soft, non-tender, nondistended. MUSCULOSKELETAL: No cyanosis, or edema. BACK: Nontender without obvious deformity. No CVA tenderness. A/P Assessment and Plan 76-year-old female with a past medical history of A. fib s/p ablation and cardioversion and gout who presents with shortness of breath Acute respiratory failure: Presented with tachypnea and hypoxia 87%. Currently comfortable on room air. Possibly secondary to CHF exacerbation as below. Chest x-ray with right basilar airspace disease. Pulmonary angiogram personally reviewed, negative for PE, however with small bilateral pleural effusions. Currently comfortable on room air. O2 and ipratropium as needed. Acute diastolic CHF exacerbation: Chest CT with bilateral pleural effusions as above. BNP mildly elevated at 200. Previous MOOKIE from 01/11 reviewed, normal systolic function and EF. Repeat echocardiogram pending. S/P diuresis with IV Lasix, continue orally. Fluid restrictions, patient educated. Monitor I's and O's. Consulted cardiology, appreciate input. Abnormal EKG: EKG reviewed; QRS duration 183, increased from 160s from previous ; LBBB appears to be chronic. Troponin 3 within normal limits. Monitor on telemetry. Subacute gout flareup: Of the left MTP joint. Already improved with a few steroid doses, hold steroids for now with fluid retention as above. Swelling and erythema resolved after starting on colchicine. //hypokalemia. Replace. Hypertension: Started on amlodipine by cardiology. BP somewhat improved overnight. Consider increasing amlodipine dose if BP remains suboptimal. Vasotec as needed. History of atrial fibrillation: EKG with regular rhythm at this time. Continue Eliquis and amiodarone. DVT prophylaxis: On Eliquis. Andrés Stanton MD Oct 02, 2016 00:45
--- NOTE | 2016-10-02 00:46 | HHI.DS ---
Discharge Summary Admission Date Sep 29, 2016 at 14:21 Discharge Date: Oct 01, 2016 Admitting Diagnosis hypoxia, CHF exacerbation (1) CHF exacerbation ICD Code: I50.9 (2) Gouty arthritis of toe ICD Code: M10.9 (3) probable CHF Procedures no invasive procedures. Brief History - From Admission 76-year-old female with a past medical history of A. fib s/p ablation and cardioversion and gout who presents with shortness of breath. The patient states that she woke up this morning about an hour after she was, she began having worsening shortness of breath. She does report that she's noticed suddenly worsening lower extremity swelling over the past week or so. She states she normally gets swollen legs over the course of the day, but normally they're resolved overnight, and her legs are smaller in the morning. She reports that her legs were more swollen than normal today. 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 She reports the pain in her left foot has significantly improved on the prednisone. She does not feel that she's increased her fluid intake while on steroids, normally drinks about half a gallon of water daily. She does state that over the holidays she's been having a glass of wine most nights. She denies any orthopnea, chest pain, palpitations , nausea, vomiting, fever, chills, cough, dysuria, diarrhea, constipation. CBC/BMP: 09/30/16 0704 09/30/16 0704 Significant Findings Laboratory Tests Test 09/29/16 09/29/16 09/30/16 10:26 10:47 07:04 White Blood Count 12.7 TH/MM3 (4.0-11.0) Neutrophils (%) (Auto) 87.5 % (16.0-70.0) Lymphocytes (%) (Auto) 8.0 % (9.0-44.0) Neutrophils # (Auto) 11.2 TH/MM3 (1.8-7.7) D-Dimer Quantitative (PE/DVT) 1.76 MG/L FEU (0.00-0.50) Blood Urea Nitrogen 22 MG/DL (7-18) 24 MG/DL (7-18) Creatinine 1.08 MG/DL (0.50-1.00) Estimat Glomerular Filtration 49 ML/MIN (>89) 60 ML/MIN (>89) Rate Random Glucose 146 MG/DL (74-106) Aspartate Amino Transf 58 U/L (15-37) (AST/SGOT) Alanine Aminotransferase 77 U/L (10-53) 68 U/L (10-53) (ALT/SGPT) Troponin I LESS THAN 0.02 NG/ML (0.02-0.05) B-Type Natriuretic Peptide 204 PG/ML (0-100) Urine Occult Blood SMALL (NEG) Urine Leukocyte Esterase SMALL (NEG) Urine Bacteria RARE /hpf (NONE) Urine Mucus FEW /lpf (OCC) Monocytes (%) (Auto) 9.3 % (0.0-8.0) Imaging Last Impressions Chest X-Ray 09/29/16 1022 Signed Impressions: Service Date/Time: Thursday, September 29, 2016 10:43 - CONCLUSION: Right basilar airspace disease. Saman Orozco MD CT Angiography 09/29/16 0000 Signed Impressions: Service Date/Time: Thursday, September 29, 2016 13:03 - CONCLUSION: 1. Bilateral pleural effusions and basilar atelectasis. 2. No evidence for pulmonary embolism. Saman Orozco MD PE at Discharge GENERAL: Well-developed well-nourished. In no acute distress. SKIN: Warm and dry. Left foot gout as below. HEENT: Normocephalic. Pupils equal and round. Mucous membranes pink and moist. CARDIOVASCULAR: Regular rate and rhythm. No murmur appreciated. RESPIRATORY: No accessory muscle use. Clear to auscultation. GASTROINTESTINAL: Abdomen soft, non-tender, nondistended. Bowel sounds x4. MUSCULOSKELETAL: Left MTP joint with no further erythema or swelling. No clubbing or cyanosis. No edema. NEUROLOGICAL: Awake and alert. No focal neurological deficits. Moves upper and lower extremities spontaneously. Normal speech. PSYCHIATRIC: Appropriate mood and affect; insight and judgment normal. Hospital Course 76-year-old female with a past medical history of A. fib s/p ablation and cardioversion and gout who presents with shortness of breath. CT angiogram negative for PE, did show small bilateral effusions. She is hungry and CHF exacerbation. Cardiology was consulted. She was diuresed with improvement in shortness of breath. Echocardiogram with no acute findings. Cleared by cardiology for discharge. We'll follow up with cardiology as outpatient Acute respiratory failure: Presented with tachypnea and hypoxia 87%. Currently comfortable on room air. Possibly secondary to CHF exacerbation as below. Chest x-ray with right basilar airspace disease. Pulmonary angiogram personally reviewed, negative for PE, however with small bilateral pleural effusions. Currently comfortable on room air. O2 and ipratropium as needed. Acute diastolic CHF exacerbation: Chest CT with bilateral pleural effusions as above. BNP mildly elevated at 200. Previous MOOKIE from 01/11 reviewed, normal systolic function and EF. Repeat echocardiogram pending. S/P diuresis with IV Lasix, continue orally. Fluid restrictions, patient educated. Monitor I's and O's. Consulted cardiology, appreciate input. Abnormal EKG: EKG reviewed; QRS duration 183, increased from 160s from previous ; LBBB appears to be chronic. Troponin 3 within normal limits. Monitor on telemetry. Subacute gout flareup: Of the left MTP joint. Already improved with a few steroid doses, hold steroids for now with fluid retention as above. Swelling and erythema resolved after starting on colchicine. //hypokalemia. Replace. Hypertension: Started on amlodipine by cardiology. BP somewhat improved overnight. Consider increasing amlodipine dose if BP remains suboptimal. Vasotec as needed. History of atrial fibrillation: EKG with regular rhythm at this time. Continue Eliquis and amiodarone. DVT prophylaxis: On Eliquis. Pt Condition on Discharge: Good Discharge Disposition: Discharge Home Discharge Time: <= 30 minutes Discharge Instructions DIET: Follow Instructions for: Heart Healthy Diet, Low Sodium Diet Activities you can perform: Regular-No Restrictions Follow up Referrals: Cardiology - 4 Weeks with Juarez Rosales MD PCP Follow-up - 1 Week with Bienvenido Richter MD New Orders: BASIC METABOLIC PROF - 3-5 Days New Medications: Allopurinol (Allopurinol) 100 Mg Tab 100 MG PO DAILY Gout #30 Ref 0 TAB Hydrochlorothiazide (Hydrochlorothiazide) 12.5 Mg Tab 12.5 MG PO DAILY Blood Pressure Management #30 Ref 0 TAB Amlodipine (Norvasc) 5 Mg Tab 5 MG PO DAILY blood pressure Days 30 TAB Colchicine (Colchicine) 0.6 Mg Tab 0.6 MG PO DAILY gout Days 14 TAB Continued Medications: Amiodarone (Amiodarone) 200 Mg Tab 200 MG PO DAILY Regulate Heart Beat #30 Ref 0 TAB Apixaban (Eliquis) 5 Mg Tab 5 MG PO BID Blood Clot Prevention #60 Ref 0 TAB Cholecalciferol (Vitamin D-400) 400 Unit Tab 400 UNITS PO DAILY Nutritional Supplement #1 Ref 0 BOTTLE Coenzyme Q10 (Ubidecarenone) (Coenzyme Q10 (Ubidecarenone)) 100 Mg Tab 100 MG PO DAILY #1 BOTTLE Multiple Vitamins W/ Minerals (Multivitamin Adults) 1 Tab 1 TAB PO DAILY Nutritional Supplement Ref 0 TAB Discontinued Medications: Prednisone (Prednisone) 20 Mg Tab 20 MG PO BID Days 3 Ref 0 TAB Andrés Stanton MD Oct 02, 2016 00:46
== END 2016-10-01 12:14 | disposition home or self-care (01) | DRG 291 ==
LOC: NEPE 10:14 → NEDA 14:21 → N04B 16:20
PROVIDERS: ADMIT Internal Medicine; ATTEND Internal Medicine
DX: I11.0 Hypertensive heart disease with heart failure (principal); J96.01 Acute respiratory failure with hypoxia; I50.33 Acute on chronic diastolic (congestive) heart failure; I48.91 Unspecified atrial fibrillation; M10.9 Gout, unspecified; I25.10 Atherosclerotic heart disease of native coronary artery without angina pectoris; M10.072 Idiopathic gout, left ankle and foot; I44.7 Left bundle-branch block, unspecified; Z79.01 Long term (current) use of anticoagulants; Z88.5 Allergy status to narcotic agent
CPT/HCPCS: 71010; 71275; 80053; 81001; 82550; 83735; 83880; 84484; 85025; 85379; 85610; 85730; 87804; 93005; 93306; 96365; 96366; J1940; Q9967

== ENCOUNTER 2017-08-30 15:56 | Emergency (ER) | payer MEDICARE, OTHER ==
[~2017-08-30] VITALS: Ht 152.4 cm; Wt 72.0 kg
[~2017-08-30 15:56] MED LIST changes: +ALLO100T PO; +AMLO5 PO; +COLC1TAB15 PO; +HYDR12.56 PO; -MAGN500T5 PO; -PRED20 PO; -TYLETAB34 PO
[2017-08-30 16:00] VITALS: BP 161/72; PULSE 82; RESP 16; TEMP 97.4; O2SAT 96
--- NOTE | 2017-08-30 16:05 | PD ---
HPI Chief Complaint: Oral / Dental Pain or Problem Time Seen by Provider: 16:04 Travel History International Travel<30 days: No Contact w/Intl Traveler<30days: No Traveled to known affect area: No History of Present Illness HPI 77-year-old female presents to emergency department for evaluation of right upper tooth pain with associated facial swelling. Patient states she noticed the tooth was painful yesterday but when she woke up today she had swelling of her right cheek. She denies any trauma. No fever or chills. She does have a partial denture on the top right but typically does not have trouble with it. Pain is throbbing, 8 out of 10. She has no other symptoms to report. PFSH Past Medical History Hx Anticoagulant Therapy: Yes Asthma: No Atrial Fibrillation: Yes Anxiety: No Depression: No Heart Rhythm Problems: Yes (afib) Cancer: No Cardiac Catheterization: Yes Cardiovascular Problems: Yes (htn, afib) High Cholesterol: No Chest Pain: No Congestive Heart Failure: No COPD: No Cerebrovascular Accident: No Diabetes: No Diminished Hearing: No Endocrine: No Gout: Yes Genitourinary: Yes Hypertension: Yes Immune Disorder: No Kidney Stones: Yes (In the 1980s) Musculoskeletal: No Neurologic: No Psychiatric: No Reproductive: No Respiratory: Yes Immunizations Current: Yes Migraines: No Seizures: No Sleep Apnea: No Thyroid Disease: No Menopausal: Yes : 7 Para: 6 Miscarriage: 1 Past Surgical History Abdominal Surgery: Yes (rupture appendix removal at the age of 40's) Appendectomy: Yes Cardiac Surgery: Yes (ablation) Coronary Artery Bypass Graft: No Ear Surgery: No Endocrine Surgery: No Eye Surgery: No Gynecologic Surgery: Yes (ABLATION X2 ) Oral Surgery: No Thoracic Surgery: No Tonsillectomy: Yes Other Surgery: Yes Social History Alcohol Use: Yes (Occasionally) Tobacco Use: No Substance Use: No Allergies-Medications (Allergen,Severity, Reaction): Coded Allergies: cyclobenzaprine (Verified Allergy, Severe, MUSCULOSKELETAL ISSUES, 08/30/17 ) oxycodone (Verified Allergy, Severe, 08/30/17) nervous hydrocodone (Verified Adverse Reaction, Severe, JITTERY, 08/30/17) pseudoephedrine (Verified Adverse Reaction, Severe, JITTERY, 08/30/17) Reported Meds & Prescriptions Reported Meds & Active Scripts Active Peridex Liq (Chlorhexidine Gluconate (Mouth) Liq) 0.12% Soln 15 Ml SWISH-SPIT BID 14 Days Zofran Odt (Ondansetron Odt) 4 Mg Tab 4 Mg SL Q6HR PRN Ultram (Tramadol HCl) 50 Mg Tab 50 Mg PO Q6H PRN Penicillin V Potassium 500 Mg Tab 500 Mg PO Q6H 10 Days Allopurinol 100 Mg Tab 100 Mg PO DAILY Colchicine 0.6 Mg Tab 0.6 Mg PO DAILY 14 Days Hydrochlorothiazide 12.5 Mg Tab 12.5 Mg PO DAILY Norvasc (Amlodipine Besylate) 5 Mg Tab 5 Mg PO DAILY 30 Days Reported Vitamin D-400 (Cholecalciferol) 400 Unit Tab 400 Units PO DAILY Amiodarone (Amiodarone HCl) 200 Mg Tab 200 Mg PO DAILY Coenzyme Q10 (Ubidecarenone) 100 Mg Tab 100 Mg PO DAILY Eliquis (Apixaban) 5 Mg Tab 5 Mg PO BID Review of Systems Except as stated in HPI: all other systems reviewed are Neg Physical Exam Narrative GENERAL: Well-nourished, well-developed female patient, in no acute distress. SKIN: Focused skin assessment warm/dry. HEAD: Normocephalic. Mild swelling to the right cheek with slight erythema. No fluctuation or induration. EYES: No scleral icterus. No injection or drainage. ENT: Mucosa pink and moist. No erythema or exudates. No uvular edema. No uvular , palatal, or tonsillar deviation. Airway patent. Nasal turbinates appear normal without nasal blood, purulent drainage or septal hematoma. DENTAL: Patient has a partial noted in the right upper first and second bicuspid. There is gingival erythema surrounding this that is very tender to palpate. There is no fluctuation. No definitive abscess. No malocclusion. NECK: Supple, trachea midline. No JVD or lymphadenopathy. CARDIOVASCULAR: Regular rate and rhythm without murmurs, gallops, or rubs. RESPIRATORY: Breath sounds equal bilaterally. No accessory muscle use. Data Data Last Documented VS Vital Signs Date Time Temp Pulse Resp B/P (MAP) Pulse Ox O2 Delivery O2 Flow Rate FiO2 08/30/17 16:00 97.4 82 16 161/72 (101) 96 Orders Orders Tramadol (Ultram) (08/30/17 16:15) Ed Discharge Order (08/30/17 16:13) MDM Medical Decision Making Medical Screen Exam Complete: Yes Emergency Medical Condition: Yes Medical Record Reviewed: Yes Differential Diagnosis Dental abscess versus gingivitis versus pulpitis versus periodontal disease Narrative Course 77-year-old female presents to emergency department for evaluation of dental pain with associated facial swelling. Patient does have gingival erythema and edema with a possible abscess but no definitive fluctuance with erythema that extends into the right cheek. I'll start patient on oral antibiotics as well as give her some pain control. Upon reassessment here, she does verbalize improvement in her pain. She'll be discharged with tramadol. She is encouraged to follow-up with the dentist as soon as possible return immediately with any acute worsening symptoms. Diagnosis Primary Impression: Dental abscess Additional Impression: Facial cellulitis Referrals: Dentist Primary Care Physician Patient Instructions: Dental Abscess (GEN), General Instructions Additional Instructions: Follow-up with a dentist as soon as possible Follow-up care primary care Return immediately with any acute worsening symptoms Med/Other Pt SpecificInfo: Prescription(s) given Scripts Chlorhexidine Gluconate (Mouth) Liq (Peridex Liq) 0.12% Soln 15 ML SWISH-SPIT BID for 14 Days, #420 ML 0 Refills Prov: Emmy Adam 08/30/17 Ondansetron Odt (Zofran Odt) 4 Mg Tab 4 MG SL Q6HR Y for Nausea/Vomiting, #15 TAB 0 Refills Prov: Emmy Adam 08/30/17 Tramadol (Ultram) 50 Mg Tab 50 MG PO Q6H Y for PAIN, #20 TAB 0 Refills Prov: Emmy Adam 08/30/17 Penicillin V Potassium (Penicillin V Potassium) 500 Mg Tab 500 MG PO Q6H for Infection for 10 Days, #40 TAB 0 Refills Prov: Emmy Adam 08/30/17 Disposition: 01 DISCHARGE HOME Condition: Stable Emmy Adam Aug 30, 2017 16:05
[2017-08-30] MEDS ORDERED: traMADol HCL 50 MG TAB PO ONE (16:15)
[2017-08-30] MEDS ORDERED: TRAM50 PO (16:19)
[2017-08-30] MEDS ORDERED: ZOFR4TAB3 SL (16:19)
[2017-08-30] MEDS ORDERED: PENI500T PO (16:19)
[2017-08-30] MEDS ORDERED: PERI0.126 SWISH-SPIT (16:20)
== END 2017-08-30 16:57 | disposition home or self-care (01) ==
LOC: PHEFT 15:56
DX: K04.7 Periapical abscess without sinus (principal); L03.211 Cellulitis of face; I10 Essential (primary) hypertension; I48.91 Unspecified atrial fibrillation; Z88.5 Allergy status to narcotic agent; Z79.01 Long term (current) use of anticoagulants; Z79.899 Other long term (current) drug therapy
CPT/HCPCS: 99284